=== PATIENT | female | born 1975 | race Caucasian/White ===

== ENCOUNTER 2019-08-02 09:07 | Day surgery (SDC) | payer OTHER ==
[2019-08-02] MEDS ORDERED: LIDOCAINE MPF (2%) 20 MG/1 ML VIAL 5 ML ONE (09:30)
[2019-08-02] MEDS ORDERED: SODIUM CHLORIDE 0.9% 1000 ML 1,000 ML ONE (09:32)
[2019-08-02] MEDS ORDERED: SODIUM CHLORIDE 0.9% 1000 ML 1,000 ML IV SCH (10:45)
[2019-08-02] MEDS ORDERED: PROPOFOL 200 MG/20 ML VIAL IV ONE ×2 (11:14)
--- NOTE | 2019-08-02 11:14 | Anesthesia Day of Surgery ---
Anesthesia Day of Surgery - Day of Surgery Patient Examined: Yes Patient H&P Reviewed: Yes Patient is NPO: Yes
--- NOTE | 2019-08-02 11:15 | Anesthesia Consultation ---
Anesthesia Consult and Med Hx Date of service: 08/02/19 - Airway Anesthetic Teeth Evaluation: Good ROM Head & Neck: Adequate Mental/Hyoid Distance: Adequate Mallampati Class: Class I Intubation Access Assessment: Good - Pre-Operative Health Status ASA Pre-Surgery Classification: ASA1 Proposed Anesthetic Plan: MAC - Central Nervous System Hx Psychiatric Problems: No - Other Systems Hx Cancer: No - Additional Comments Anesthesia Medical History Comments: Kazakh-speaking only
--- NOTE | 2019-08-02 11:35 | Short Stay Summary ---
Short Stay Documentation Date of service: 08/02/19 Narrative H&P: The patient presents for EGD to evaluate nausea and persistent abdominal bloating. - History Past Medical History: No medical history Past Surgical History: No surgical history Social history: no significant social history, , lives with family - Allergies and Medications Current Medications: Allergies No Known Allergies Allergy (Unverified 08/02/19 09:08) Active Medications Sodium Chloride (Nacl 0.9% 1000 Ml) 1,000 mls @ 50 mls/hr IV DIRECT ZOILA - Physical exam General appearance: no acute distress, well-nourished Integumentary: no rash, no growths, no abnormal pigmentation HEENT: Atraumatic, PERRLA, EOMI, Mucous membr. moist/pink Lungs: Clear to auscultation, Normal air movement Breasts: deferred Gastrointestinal: normoactive bowel sounds, no tenderness, no distended, no masses, no guarding, no organomegaly Female Genitourinary: deferred Rectal Exam: deferred Extremities: no ischemia, pulses intact, pulses symmetrical, No edema, normal temperature, normal color, Full ROM Neurological: Normal gait, Normal speech, Strength at 5/5 X4 ext, Normal tone, Sensation intact, Cranial nerves 3-12 NL - Brief post op/procedure progress note Date of procedure: 08/02/19 Findings: see dictation Estimated blood loss: none Pathology: list (1. biopsies of duodenum to r/o celiac disease. 2. antral bi opsies for h.pylori, 3. biopsies of GE junction) Specimen disposition: to lab Condition: stable - Disposition Condition at discharge: Good Disposition: DC-01 TO HOME OR SELFCARE - Discharge Diagnoses (1) Epigastric pain Status: Acute (2) Bloating Status: Acute Short Stay Discharge Plan Activity: other (No driving for 24 hours) Weight Bearing Status: Full Weight Bearing Diet: regular Follow up with: JANETH TRIPP MD [Primary Care Provider] - 7 Days
--- NOTE | 2019-08-02 11:40 | Operative Report ---
Operative Report Operative Report: Date of procedure: 08/02/2019 Procedure: Esophagogastroduodenoscopy with biopsies of the duodenum to exclude celiac disease, biopsies of the antrum for H. pylori and biopsies of the EG junction for acid reflux changes Preprocedure diagnosis: Epigastric pain and bloating. Post procedure diagnosis: Minimal prepyloric gastritis. Hiatus hernia. Mild erosive distal esophagitis. Partial Schatzki's ring. Endoscopist: Dr. Ma Anesthesia: Monitored anesthesia care per anesthesia department Medications: [Propofol per anesthesia.] Estimated blood loss: [0] After careful discussion of the nature and purpose of the procedure as well as details the technique risks benefits and alternatives consent was obtained. The patient was placed in the left lateral decubitus position and medicated per anesthesia. The tip of the Olympus video scope was passed per orum under direct vision into the esophagus and advanced into the stomach and descending duodenum. The descending duodenum the duodenal bulb and pylorus were symmetrical and normal. Biopsies were taken in the second, third portion and duodenal bulb to assess for possible celiac disease. The scope was withdrawn into the stomach and the stomach then gently insufflated with air. The antrum a tiny erosion in the prepyloric area. Biopsies were taken for H. pylori testing. The stomach was further insufflated and the scope was then retroflexed and partially withdrawn. The cardia, fundus, and body of the stomach were within normal limits and easily distensible. A small sliding hiatus hernia was present. The scope was then withdrawn in the forward position. The esophagogastric junction was at [37 cm]. A partial Schatzki's ring was present and a small erosion was present immediately above the Schatzki's ring consistent with acid reflux. Biopsies were taken. The esophageal body was otherwise normal throughout. The procedure was was well tolerated and the patient was observed in recovery. Impressions: [1. Normal duodenum 2. Minimal prepyloric erosive gastritis. 3. Small sliding hiatus hernia 4. Mild distal esophagitis consistent with reflux] Plan: [Pathology report. The patient will call the office in approximately 10 days. He H. pylori if present. Begin antireflux therapy pending biopsies.] Electronically signed: Wale Ma MD
[2019-08-02 12:32] VITALS: BP 107/61
--- NOTE | 2019-08-03 06:46 | Post Anesthesia Evaluation ---
- Post Anesthesia Evaluation Patient Participated: Yes Airway Patent: Yes Stable Respiratory Function: Yes Nausea/Vomiting: No Temp > 96.8F: Yes Pain Manageable: Yes Adequeate Hydration: Yes Anesthesia Complications: No Block Receding Appropriately: Not Applicable Patient on Ventilator: No
== END 2019-08-02 09:08 | disposition home or self-care (01) ==
LOC: GIO 09:07
PROVIDERS: ATTEND Internal Medicine Gastroenterology
DX: R10.13 Epigastric pain (principal); R14.0 Abdominal distension (gaseous); K29.70 Gastritis, unspecified, without bleeding; K44.9 Diaphragmatic hernia without obstruction or gangrene; K21.0 Gastro-esophageal reflux disease with esophagitis; Z79.899 Other long term (current) drug therapy
CPT/HCPCS: 43239; 81025; 88305; 88342; J2704; J7030; 88312